=== PATIENT | female | born 1990 | race Caucasian/White ===

== ENCOUNTER → 2017-03-18 | Outpatient (CLI) | payer BC, OTHER ==
--- NOTE | 2017-03-18 17:18 | DIAGNOSTIC IMAGING REPORT ---
RIGHT LOWER EXTREMITY VENOUS DOPPLER CLINICAL HISTORY: Right calf pain. COMPARISON STUDY: No previous studies for comparison. TECHNIQUE: Sonography of the deep venous system of the right lower extremity was performed. Compression and augmentation were evaluated. FINDINGS: The right common femoral, superficial femoral and popliteal veins were compressible. Augmentation was normal. Flow was shown within the deep calf vessels. IMPRESSION: No evidence of deep venous thrombus within the right lower extremity. Electronically signed by: Dequan Chow M.D. 03/18/2017 5:17 PM Dictated Date/Time: 03/18/2017 5:16 PM
== END | disposition home or self-care (01) ==
LOC: C.ULTR 16:40
PROVIDERS: ATTEND Physician Assistant
DX: M79.661 Pain in right lower leg (principal)